=== PATIENT | female | born 1960 | race Caucasian/White ===

== ENCOUNTER → 2017-10-11 | Outpatient (CLI) | payer BC ==
[~2017-10-11] VITALS: Ht 160 cm; Wt 58.1 kg
[~2017-10-11] MED LIST: CALTRATE 600+D1 EAC1 PO; CLARITIN-D 21 TABLET PO; DEXILANT30 MG PO; EXCEDRIN MIGRA1 EAC3 PO; GUMMY SWIRLS1 EACH PO; MOTRIN800 MG PO; MULTIVITAMIN1 EAC2 PO; TYLENOL EXTRA500 MG PO; XYZAL5 MG PO
== END | disposition home or self-care (01) ==
LOC: AMB 10:00
PROC: 0D778ZZ Dilation of Stomach, Pylorus, Via Natural or Artificial Opening Endoscopic (ICD-10-PCS; principal; 2017-10-11)
PROC: 0D748ZZ Dilation of Esophagogastric Junction, Via Natural or Artificial Opening Endoscopic (ICD-10-PCS; principal; 2017-10-11)
DX: K31.1 Adult hypertrophic pyloric stenosis (principal)
CPT/HCPCS: J3301

== ENCOUNTER → 2017-11-01 | Outpatient (CLI) | payer BC ==
[~2017-11-01] VITALS: Ht 160 cm; Wt 58.1 kg
== END | disposition home or self-care (01) ==
LOC: AMB 08:30
DX: K31.1 Adult hypertrophic pyloric stenosis (principal)
CPT/HCPCS: J3301

== ENCOUNTER → 2017-12-13 | Outpatient (CLI) | payer BC ==
[~2017-12-13] VITALS: Ht 160 cm; Wt 57.6 kg
[~2017-12-13] MED LIST changes: -DEXILANT30 MG PO; +DEXILANT60 MG PO
== END | disposition home or self-care (01) ==
LOC: AMB 07:37
DX: K21.9 Gastro-esophageal reflux disease without esophagitis (principal); R94.31 Abnormal electrocardiogram [ECG] [EKG]; Z53.09 Procedure and treatment not carried out because of other contraindication